=== PATIENT | male | born 1985 | race Caucasian/White ===

== ENCOUNTER 2024-02-08 19:15 | Emergency (ER) | payer SELFPAY ==
[~2024-02-08] VITALS: Ht 182.9 cm; Wt 81.7 kg
[2024-02-08] MEDS ORDERED: Cephalexin Monohydrate 500 MG Cap PO ONE (20:00)
== END 2024-02-08 20:03 | disposition home or self-care (01) ==
LOC: ER 19:15
DX: L03.116 Cellulitis of left lower limb (principal); L03.115 Cellulitis of right lower limb; L24.5 Irritant contact dermatitis due to other chemical products; T52.0X1A Toxic effect of petroleum products, accidental (unintentional), initial encounter; Z59.89 Other problems related to housing and economic circumstances; F17.210 Nicotine dependence, cigarettes, uncomplicated
CPT/HCPCS: 99282; A9270